=== PATIENT | female | born 1970 | race Hispanic/Latino ===

== ENCOUNTER → 2018-05-06 | Day surgery (SDC) | payer MEDICARE, OTHER ==
[2018-05-05 14:26] LABS: BASOPHILS % 0.4 % (0.0-1.0); EOSINOPHILS # (AUTO) 0.2 (0.0-0.4); EOSINOPHILS % 2.4 % (0.0-6.0); HEMATOCRIT 41.4 % (34.2-44.1); HEMOGLOBIN 13.7 g/dL (12.0-16.0); LYMPHOCYTES # (AUTO) 2.6 (1.0-3.2); LYMPHOCYTES % 34.2 % (18.0-39.1); MEAN CORPUSCULAR HEMOGLOBIN 30.4 pg (28-32); MEAN CORPUSCULAR HGB CONC 33.1 g/dL (31-35); MONOCYTES # (AUTO) 0.8 (0.2-0.8); MONOCYTES % 9.9 % (4.4-11.3); NEUTROPHILS % 52.7 % (38.7-80.0); PLATELET COUNT 261 x10e3/uL (140-360); RED CELL DISTRIBUTION WIDTH 13.8 % (11.7-14.4)
--- NOTE | 2018-05-05 14:37 | Diagnostic Imaging Report ---
EXAM: XR CHEST 2 VIEWS DATE: 05/05/2018 1:36 PM INDICATION: Pain COMPARISON: None FINDINGS: Lines and Tubes: None Heart and Mediastinum: No acute cardiomediastinal findings. Lungs and Pleura: No significant pleural effusion, pneumothorax, or focal consolidation. Minimal opacities in the lung bases statistically represent atelectasis, however, infectious process could have a similar appearance. Bones and Soft Tissues: No acute findings. IMPRESSION: 1. No acute cardiopulmonary findings. Signed by: Dr. Julian Mathew MD on 05/05/2018 2:34 PM
[~2018-05-06] MED LIST: BACITRACIN 50,000 UNIT VIAL ONE; BUPIVACAINE HCL 0.5% INJ 30 ML VIAL INJ ONE; CLINDAMYCIN PHOS 900MG/ 50ML 50 ML IV ONE; DEXAMETHASONE SOD PHOS INJ 4 MG/ML VIAL ONE; EPHEDRINE SULFATE INJ 50 MG/10 ML SYR ONE; FENTANYL CITRATE/PF 100MCG/2 ML INJ ONE; LIDOCAINE HCL 2% LOCAL INJ 5 ML SDV VIAL INJ ONE; METOPROLOL SUCC50 MG PO; MIDAZOLAM HCL 2 MG/2 ML VIAL ONE; ONDANSETRON HCL INJ 2 MG/ML VIAL ONE; PROPOFOL IV EMULSION 10 MG/ML 20 ML VIAL ONE; SEVOFLURANE INHAL SOLN 250 ML PEN BTL ONE
--- OUTSIDE RECORDS SUMMARY | 2018-05-06 05:19 | XMS REPORT ---
Author Author [facility] Organization [facility] Address Unknown Phone Unavailable Care Team Providers Care Mosaic Layer Name Role Phone Isaias MAZARIEGOS Unavailable Unavailable Payers Payer Name Policy Type Policy Number Effective Date Expiration Date Problems This patient has no known problems. Allergies, Adverse Reactions, Alerts Allergy Name Allergy Type Status Severity Reaction(s) Onset Date Inactive Date Treating Clinician Comments Iodinated Contrast Media - IV Dye DA Active U 2018-04-30 00:00:00 Iodinated Contrast Media - IV Dye DA Active U 2015-10-30 00:00:00 Medications This patient has no known medications. Results Test Description Test Time Test Comments Text Results Atomic Results Result Comments CHEST 2 VIEWS 2018-05-05 14:34:00 [place] [id number] Patient Name: YESENIA LOTT MR #: [id number] : 1970 Age/Sex: 48/F Req #: [id number] Adm Physician: Ordered by: CHIP MAZARIEGOS DP Report #: [id number] Location: OR Room/Bed: Procedure: [id number] DX/CHEST 2 VIEWS Exam Date: 05/05/18 Exam Time: 1345 REPORT STATUS: Signed EXAM: XR CHEST 2 VIEWS DATE: 05/05/2018 1:36 PM INDICATION: Pain COMPARISON: None FINDINGS: Lines and Tubes: None Heart and Mediastinum: No acute cardiomediastinal findings. Lungs and Pleura: No significant pleural effusion, pneumothorax, or focal consolidation. Minimal opacities in the lung bases statistically represent atelectasis, however, infectious process could have a similar appearance. Bones and Soft Tissues: No acute findings. IMPRESSION: 1. No acute cardiopulmonary findings. Signed by: Dr. Julian Mathew MD on 05/05/2018 2:34 PM Dictated By: JULIAN MATHEW MD [id number] Transcribed By: CRISTIAN on 05/05/18 1434 COPY TO: CHIP MAZARIEGOS DPM
--- NOTE | 2018-05-06 07:52 | Operative Report ---
DATE OF PROCEDURE: May 06, 2018 PREOPERATIVE DIAGNOSIS: Left foot foreign body, needle. POSTOPERATIVE DIAGNOSIS: Left foot foreign body, needle. PLANNED PROCEDURE: Removal of foreign body, left foot. MAJOR ASSEMBLER: None. ANESTHESIA: General with a postoperative block consisting of 10 mL of 0.5% Marcaine plain. HEMOSTASIS: Pneumatic thigh tourniquet set at 350 mmHg for a total time approximately 10 minutes. MATERIALS: 4-0 Prolene. ESTIMATED BLOOD LOSS: Less than 10 mL. PATHOLOGY: None. PROCEDURE IN DETAIL: Patient was seen in the preoperative waiting room where the correct procedure and site was identified. The patient was brought to the operating room and placed on the operating table in the supine position. General anesthesia was initiated at this time. A well-padded pneumatic tourniquet was placed about the patient's left ankle. The left foot and ankle was then scrubbed, prepped draped in the usual aseptic manner. The left foot and ankle was exsanguinated with gravity. The pneumatic ankle tourniquet was inflated to 250 mmHg for a total time approximately 10 minutes. Attention was directed to the plantar aspect of the patient's left heel where a previous foreign body puncture wound was present. A 2 cm linear incision was made directly over the puncture wound site. Utilizing intraoperative fluoroscopy, the foreign body was triangulated and identified. Utilizing a hemostat, Dwight and blunt dissection, the needle metallic foreign body was identified, excised from the operative site and passed off to the back table. This was confirmed via intraoperative fluoroscopy. The wound was then flushed with copious amounts of sterile saline mixed with Bacitracin with a Pulsavac. There were noted to be no purulent drainage, erythema, edema, or warmth. A decision was made to primarily close the incision site. This was performed utilizing 3 simple interrupted sutures with 4-0 Prolene. The incision site was then dressed with Adaptic, 4 x 4s, Kerlix, Chito wrap, and offloading postop shoe. Patient tolerated the procedure and anesthesia well. Patient was transferred to the postoperative recovery unit with vital signs stable and vascular status intact. Patient was monitored there for a short period time before being sent home with the following written and oral instructions: 1. Keep the dressing clean, dry and tact. 2. The patient is to remain partial weightbearing in an offloading postop shoe toe touch only, and to avoid excessive ambulation until being seen in the office. 3. The patient was given the office number and instructed to contact us if any problems should arise. Job#: [id number] [place]ACK[place]
[2018-05-06 08:00] VITALS: BP 124/74
== END | disposition home or self-care (01) ==
LOC: OR 05:09
PROVIDERS: ATTEND Podiatrist Foot & Ankle Surgery
DX: M60.272 Foreign body granuloma of soft tissue, not elsewhere classified, left ankle and foot (principal); I10 Essential (primary) hypertension; Z91.041 Radiographic dye allergy status; Z01.810 Encounter for preprocedural cardiovascular examination; Z01.812 Encounter for preprocedural laboratory examination; Z01.818 Encounter for other preprocedural examination
CPT/HCPCS: 28192; 36415; 71046; 81025; 85025; 93005; J1100; J2001; J2250; J2405; J2704